=== PATIENT | male | born 1975 | race Caucasian/White ===

== ENCOUNTER 2018-11-04 19:31 | Inpatient (IN) | payer OTHER ==
[~2018-11-04] VITALS: Ht 180.3 cm; Wt 93.9 kg
--- NOTE | 2018-11-04 19:40 | NUR ---
EKG IN PROGRESS.
[2018-11-04 19:41] VITALS: Ht 180.3 cm; Wt 93.9 kg
--- NOTE | 2018-11-04 20:00 | NUR ---
PT AMBULATED TO ED WITH STEADY GAIT TO PROVIDE URINE SPECIMEN.
--- NOTE | 2018-11-04 20:08 | NUR ---
XRAY AT BEDSIDE.
--- NOTE | 2018-11-04 20:16 | NUR ---
PT PRESENTS TO ED WITH C/O FEELING SUICIDAL, ANXIOUS, AND EXPERIENCING CHEST PAIN. PT STATES THAT FOR THE LAST WEEK HE HAS BEEN FEELING ANXIOUS AND HAVING DIFFICULTY SLEEPING. PT STATES THAT HE ONLY SLEEPS ABOUT 1 HR A DAY AND THIS HAS INCREASED HIS SUICIDAL THOUGHTS. PT STATES THAT HE DOES NOT HAVE A PLAN HOWEVER, HE HAS BEEN THINKING ABOUT IT MORE. PT STATES THAT CHEST PAIN IS CONSTANT BUT DOES NOT APPEAR TO BE IN ANY DISTRESS. PT LUNG SOUNDS CLEAR BILATERALLY. PT STATES TO FOLLOWING A THERAPIST AND BEING COMPLIANT WITH HIS MEDICATIONS AT HOME. PT AOX4, RESP EVEN AND UNLABORED, NO ACUTE DISTRESS NOTED. DR TIERNEY AT BEDSIDE FOR MSE. ACTUARIAL ANALYST SARAH AWARE THAT PT IS SUICIDAL AND REQUESTED A ROOM IN VIEW OF NURSE'S STATION FOR CLOSER MONITORING.
--- NOTE | 2018-11-04 20:32 | NUR ---
PT MOVED TO ROOM 3 FOR CLOSER MONITORING IN SIGHT OF NURSING STATION FOR VOCALIZATION OF SUICIDAL IDEATION. REPORT RECEIVED FROM LAILA THAO PT HAS NO COMPLAINTS OF CHEST PAIN AT THIS TIME
--- NOTE | 2018-11-04 20:34 | NUR ---
PT MOVED FROM ER BED 2B TO 3 FOR CLOSER MONITORING. PT CARE ENDORSED TO SERVANDO RN TO ASSUME PT CARE. PT AOX4, RESP EVEN AND UNLABORED, NO ACUTE DISTRESS NOTED.
[2018-11-04 20:36] LABS: BASOPHIL % 0.3 % (0-2); PLATELET COUNT 226 x10^3mcL (130-400); RED CELL DISTRIBUTION WIDTH 13.5 % (11.5-14.5)
[2018-11-04 20:45] LABS: CALCIUM 8.5 mg/dL (8.5-10.1); CARBON DIOXIDE 30.3 mmol/L (21-32); CHLORIDE SERUM 104 mmol/L (98-107); CREATININE SERUM 0.8 mg/dL (0.7-1.3); GFR1 > 60 mL/min; GLUCOSE SERUM 91 mg/dL (74-106); POTASSIUM SERUM 4.2 mmol/L (3.5-5.1); SODIUM SERUM 143 mmol/L (136-145)
[2018-11-04 20:45] LABS: AMPHETAMINE QUAL UR NONE DETECTED (See below)
[2018-11-04 20:57] LABS: ALKALINE PHOSPHATASE 61 U/L (46-116); ALT/SGPT 25 U/L (16-63); AST/SGOT 17 U/L (15-37); BILIRUBIN TOTAL 0.14 mg/dL (0.20-1.00); T4(THYROXINE) 5.1 ug/dL (4.7-13.3); TOTAL PROTEIN, SERUM 7.3 g/dL (6.4-8.2)
--- NOTE | 2018-11-04 21:00 | NUR ---
PT REQUESTED FOOD. MD TIERNEY STATES OKAY FOR PT TO EAT PT PROVIDED WITH PB &J SANDWHICH AND MILK AT THIS TIME
--- NOTE | 2018-11-05 02:54 | NUR ---
PT AMBULATED TO THE RESTROOM WITH STEADY GAIT. NAD AT THIS TIME. PT BACK IN BED AND CONNECTED TO FULL CM AND PULSE OX MONITORS
--- NOTE | 2018-11-05 04:58 | NUR ---
PT AMBULATED TO THE RESTROOM WITH STEADY GAIT ACCOMPANIED BY MINOO Rosa RN
--- NOTE | 2018-11-05 07:06 | NUR ---
RECIEVED REPORT FROM KEESHA AL. PT RESTING IN [facility] E/U.
--- NOTE | 2018-11-05 07:09 | NUR ---
REPORT GIVEN TO NANCY Chacon RN
--- NOTE | 2018-11-05 07:18 | NUR ---
PT IN FULL VIEW OF NURSES STATION. RESP EQUAL AND UNLABORED. NAD NOTED, PT NOTED TO BE SLEEPING WITH EQUAL CHEST RISE AND FALL, EASILY AROUSED. PERSONAL BELONGINGS IN RADIO ROOM.
--- NOTE | 2018-11-05 07:32 | NUR ---
BREAKFAST TRAY GIVEN.
--- NOTE | 2018-11-05 07:57 | NUR ---
5150 WIRTTEN BY SARAH THAO AND PLACED IN CHART. SUICIDE PRECAUTIONS IN PLACE, PT AWARE OF 5150 STATUS AND ADVISED BY SARAH. PT AWAKE ALERT AND ORIENTED WITH RESP E/U
--- NOTE | 2018-11-05 08:43 | NUR ---
PT SLEEPING UPRIGHT IN RVENICE WITH RESP E/U IN NO ACUTE DISTRESS AT THIS TIME.
--- NOTE | 2018-11-05 10:03 | NUR ---
Packet faxed to [facility] and [place] for review.
--- NOTE | 2018-11-05 10:20 | NUR ---
PT IN FULL VIEW OF NURSING STATION AND IN NO ACUTE DISTRESS AT THIS TIME. PT RESP E/U. PT RESTING IN SEMI F[place]LERS.
--- NOTE | 2018-11-05 10:49 | NUR ---
Packet faxed to [facility] at [place] for wait-list.
--- NOTE | 2018-11-05 11:41 | NUR ---
PT AMBULATED TO RESTROOM WITH STUDENT NURSE. PT RESP E/U, NAD NOTED, AMBULATORY WITH STEADY GAIT
--- NOTE | 2018-11-05 11:41 | NUR ---
Called the following facilities: [facility], s/w [facility] SU[facility]. No beds. [facility], s/w Julius. No beds [facility], s/w Andie. No beds. [facility], s/w Daisha. No beds.
--- NOTE | 2018-11-05 13:15 | NUR ---
PT GIVEN WATER AND LUNCH AND INGESTING WELL WITH NO ACUTE DISTRESS NOTED. PT IS BEING AMBULATED TO RESTROOM WITH GAIT NOTED TO BE STEADY. PT GIVEN TOILETRIES WITH PT GIVING VERBAL CONTRACT NOT TO HARM SELF WITH SUPPLIES. PT IS IN FULL VIEW OF MONITORS. PT REPORTS SLEEPS WITH CPAP MACHINE AT NIGHT FOR SLEEP APNEA. MD LENNON INFORMED.
--- NOTE | 2018-11-05 17:17 | NUR ---
DINNER TRAY PROVIDED
--- NOTE | 2018-11-05 17:35 | NUR ---
100% OF DINNER CONSUMED
--- NOTE | 2018-11-05 17:40 | NUR ---
PT UP AND BRUSHING TEETH WITH NO DISTRESS NOTED. IN FULL VIEW OF NURSING STATION.
--- NOTE | 2018-11-05 19:00 | NUR ---
PT GIVEN MARCIEICH PER REQUEST.
--- NOTE | 2018-11-05 19:11 | NUR ---
GAVE REPORT TO MARISSA THAO TO RESUME CARE OF PT
--- NOTE | 2018-11-05 19:12 | NUR ---
RECEIVED PT REPORT FROM ANGELA THAO, I WILL NOW ASSUME PRIMARY CARE OF PT
--- NOTE | 2018-11-05 20:23 | NUR ---
PT RESTING IN ED [place]. RT BROUGHT PT A CPAP MACHINE TO HELP PT TO REST. PT IS A/O X4. PT RESPS ARE E/U. NO ACD NOTED
[2018-11-05] MEDS ORDERED: GLU850 PO (21:35)
[2018-11-05] MEDS ORDERED: BUSPIRONE HCL15 MG (21:36)
[2018-11-05] MEDS ORDERED: ZOLOFT100 MG (21:36)
[2018-11-05] MEDS ORDERED: TRAZODONE HCL1 POW (21:36)
[2018-11-05] MEDS ORDERED: ANAFRANIL75 MG (21:37)
[2018-11-05] MEDS ORDERED: MASON NATURAL1000 IU (21:37)
--- NOTE | 2018-11-05 22:10 | NUR ---
PT REPORT GIVEN TO CLARISSE THAO UPSTAIRS ON MED SURG FLOOR TO ASSUME PRIMARY CARE OF PT
[2018-11-05 22:33] VITALS: BP 116/76
--- NOTE | 2018-11-05 22:41 | NUR ---
RECEIVED PT FROM ER, PT ADMIT FOR 5150 HOLD SUICIDAL IDEA. PT IS A/O X4, VERBAL RESPONSIVE, ABLE TO FOLLOW COMMAND, C/O MILD HEADACHE 2/10 DUE TO LACK OF SLEEP , PT STATE HE DIDNT SLEEP FOR 1 WEEK, LUNG SOUND CLEAR BILATERAL, NO COUGH, NO SOB, PT DENY ANY CHEST PAIN OR DISCOMFORT, BOWEL SOUND PRESENT ALL 4 QUADRANTS, NO DISTENTION, NO TENDER. PEDAL PULSE PRESENT BOTH FEET, NO EDEMA, PT REFUSED IV AT THIS MOMENT, PT DENY ANY SUICIDAL IDEA AT THIS MOMENT, DENY ANY PLAN OR ATTEMPTED BEFORE. SITTER AT BEDSIDE, ROOM CLOSE TO STATION. ALL ADLS ASSIST, ALL NEED MET, CALL LIGHT IN REACH, WILL CONTINUE TO MONITOR.
--- NOTE | 2018-11-05 22:41 | NUR ---
RECEIVED PT FROM ER, PT ADMIT FOR 5150 HOLD SUICIDAL IDEA. PT IS A/O X4, VERBAL RESPONSIVE, ABLE TO FOLLOW COMMAND, C/O MILD HEADACHE 2/10 DUE TO LACK OF SLEEP , PT STATE HE DIDNT SLEEP FOR 1 WEEK, LUNG SOUND CLEAR BILATERAL, NO COUGH, NO SOB, PT DENY ANY CHEST PAIN OR DISCOMFORT, BOWEL SOUND PRESENT ALL 4 QUADRANTS, NO DISTENTION, NO TENDER. PEDAL PULSE PRESENT BOTH FEET, NO EDEMA, IV AT LEFT AC, NO LEAKING, NO INFILTRATION, PT DENY ANY SUICIDAL IDEA AT THIS MOMENT, DENY ANY PLAN OR ATTEMPTED BEFORE. SITTER AT BEDSIDE, ROOM CLOSE TO STATION. ALL ADLS ASSIST, ALL NEED MET, CALL LIGHT IN REACH, WILL CONTINUE TO MONITOR.
[2018-11-06 01:00] VITALS: BP 116/76
--- NOTE | 2018-11-06 05:40 | NUR ---
PT RESTED IN LONG INTERVALS THROUGHOUT SHIFT. NO SOB NOTED. BREATHING EVEN AND UNLABORED. NO DISTRESS NOTED. NO SUICIDAL IDEATION AT THIS TIME. IV TO LAC, SALINE LOCKED. SAFETY MEASURES IN PLACE. BED IN LOWEST POSITION. SIDE RAILS UP X2. CALL LIGHT WITHIN REACH. SITTER AT BEDSIDE.
[2018-11-06 06:46] VITALS: BP 99/63
--- NOTE | 2018-11-06 07:13 | NUR ---
[facility] still actively working on finding placement for this pt. Per maintenance technician 2nd shift no openings overnight. Will f/u with facilities. Will contact with any update.
--- NOTE | 2018-11-06 07:25 | NUR ---
PT IS AAOX4. DENIES SUICIDAL IDEATION AND PLAN AT THIS TIME. RESP EVEN AND UNLABORED. LUNG SOUNDS CTA, ON R/A. ABDOMEN SOFT, NONTENDER, NONDISTENDED. BOWEL SOUNDS ACTIVE. PT DENIES N/V/D AND CONSTIPATION. PERIPHERAL PULSES MODERATELY PALPABLE. NO EDEMA NOTED. IV CATH TO LAC PATENT AND INTACT, WITH WNL. PT DENIES PAIN AT THIS TIME. CALL LIGHT WITHIN REACH. BED IN LOWEST POSITION.
[2018-11-06 08:19] VITALS: BP 118/66
--- NOTE | 2018-11-06 09:33 | NUR ---
PNEUMO VAX GIVEN. DUE MED GIVEN AND TOLERATED WELL. PT STATES HE TAKES PSYCH MEDS. PT TAUGHT TO HAVE MOTHER BRING MED IN FOR N/P TO REVIEW. PT VERBALIZED UNDERSTANDING. CALL LIGHT WITHIN REACH. PT DENIES PAIN. VAN OWNER OPERATOR AT BEDSIDE ON ONE TO ONE SUPERVISION.
--- NOTE | 2018-11-06 11:13 | NUR ---
F/U with contracted facilities: [facility]: s/w Phu No beds at this time. Packet on file for future openings. [facility]: Rang continuously, unable to leave message. [facility]: s/w Eunice No beds at this time [facility] Intake stated no beds. [facility]: Mic Duron, no beds at this time. Will continue to f/u, will contact with any updates.
--- NOTE | 2018-11-06 12:06 | NUR ---
RECEIVED A CALL FROM KOURTNEY([facility] INTAKE) AND SAYS HAS A BED AT [facility], GOING TO RM 1005 B, ACCEPTING MD: TO CALL REPORT . ADDRESS: [address] [place] [address] BARBIE RN ASSIGNED TO THIS PT MADE AWARE OF ABOVE. YASH([facility]) MADE AWARE OF ABOVE AND TO ARRANGE FOR TRANSPORTATION. WILL CALL (ATTENDING) TO NOTIFY HIM OF ABOVE.
--- NOTE | 2018-11-06 12:18 | NUR ---
RECEIVED A RETURN CALL FROM (ATTENDING) AND MADE HIM AWARE OF PT ACCEPTANCE AT [facility]. SAYS HE WILL PUT IN THE DISCHARGE ORDER. WILL AWAIT FOR THE TRNAPORTATION SET UP AND MADE YASH FROM [facility] THAT IS AWARE OF ACCEPTANCE TO PSYCH AND HE CLEARED PT FOR TRANSFER.
--- NOTE | 2018-11-06 12:30 | NUR ---
[facility] . AND GAVE REPORT TO KEESHA BERRIOS. PT TO ADMIT TO UNIT ONE.
[2018-11-06 13:14] VITALS: BP 118/66
--- NOTE | 2018-11-06 15:29 | NUR ---
PT TRANSFERRED TO [facility] BY [facility]. PT TRANSFERRED IN NO DISTRESS. DISCHARGE INSTRUCTIONS REVIEWED, ALL QUESTIONS ANSWERED, ALL FORMS SIGNED AND PLACE IN CHART. IV CATH TO LAC REMOVED INTACT. SITE WNL. COVERED WITH GAUZE AND BANDAID. VS: T 97.4, HR 67, RR 18, B/P 118/66. PT DENIES PAIN AND DISCOMFORT UPON DISCHARGE. ALL PERSONAL BELONGINGS TAKEN HOME.
--- NOTE | 2018-11-06 18:05 | NUR ---
RECEIVED CALL FROM [facility] FROM KEESHA BERRIOS ([phone]). PT REPORTED TO YASH THAT HE USES CPAP AT NIGHT. YASH CALLED TO INFORM [facility] THAT THEY CAN NOT RECEIVE PT DUE TO USE OF CPAP AT NIGHT. KEESHA THEODORE MADE AWARE. ARBEN IS WORKING WITH [employer]PER[employer] ON THE ISSUE.
--- NOTE | 2018-11-06 18:15 | NUR ---
BARBIE RN RECEIVED A CALL FROM [facility] AND SAYS THEY CANNOT ACCEPT PT D/T PT USES CPAP AT NIGHT AND THEY WILL SEND THE PT BACK TO OUR E.R. CALLED AND SPOKE TO DRUG ENFORCEMENT AGENT-LIZANDRO AND IBRAHIMA HER AWARE OF THE PROBLEM. RECEIVED A CALL FROM FLAKO(CABLE INSTALLER REPAIRER) AND MADE HER AWARE OF ABOVE. FLAKO TOLD ME TO CALL [facility] AND WILL DO A CONFERENCE TO DISCUSS OF ABOVE ISSUE AND WE HAD SPOKE TO HOLDEN FROM BEHAVIORAL CARE AND LOU SAYS SHE WILL CALL US BACK TO SEE WHAT IS GOING ON. WILL AWAIT FOR THE RETURN CALL.
--- NOTE | 2018-11-06 18:25 | NUR ---
RECEIVED A CALL BACK FROM [facility] NAME AMINA AND SAYS THAT [facility] HAD TRANSFERRED PT TO [facility] AND THEY HAD ACCEPTED PT IN THE SAME CAMPUS THAT TAKES CARE OF CPAP. FLAKO LICENSED MORTICIAN MADE AWARE OF ABOVE. BARBIE RN ASSIGNED TO THIS PT MADE AWARE OF ABOVE.
== END 2018-11-06 15:28 | DRG 756 ==
LOC: ED 19:31 → MU 11-05 21:15
PROVIDERS: Emergency Medicine; ADMIT Internal Medicine Pulmonary Disease
DX: F41.0 Panic disorder [episodic paroxysmal anxiety] (principal); R45.851 Suicidal ideations; E11.9 Type 2 diabetes mellitus without complications; F41.9 Anxiety disorder, unspecified; F32.9 Major depressive disorder, single episode, unspecified; F43.10 Post-traumatic stress disorder, unspecified; G47.33 Obstructive sleep apnea (adult) (pediatric); Z79.84 Long term (current) use of oral hypoglycemic drugs
CPT/HCPCS: 90732; G0378; G0480; J1630; Q0092